=== PATIENT | male | born 1980 | race African-American/Black ===

== ENCOUNTER 2022-06-24 16:19 | Emergency (ER) | payer MEDICAID, OTHER ==
[~2022-06-24] VITALS: Ht 177.8 cm; Wt 74.0 kg
[2022-06-24 16:20] VITALS: BP 161/100
[2022-06-24] MEDS ORDERED: LIDOCAINE HCL 1% 20ML VIAL (Pyxis) INJ INFIL ONE (16:45)
[2022-06-24] MEDS ORDERED: CHLO473M2 PO (16:46)
[2022-06-24] MEDS ORDERED: NAP5EC PO (16:46)
[2022-06-24] MEDS ORDERED: AMOX1TAB16 PO (16:46)
[2022-06-24] MEDS ORDERED: LIDOCAINE HCL 1% 10 MG/ML 10ML VIAL IJ NR (17:00)
== END 2022-06-24 18:33 | disposition home or self-care (01) ==
LOC: ER 16:19
DX: S01.511A Laceration without foreign body of lip, initial encounter (principal); S52.391A Other fracture of shaft of radius, right arm, initial encounter for closed fracture; V49.49XA Driver injured in collision with other motor vehicles in traffic accident, initial encounter; Y93.89 Activity, other specified; Y92.89 Other specified places as the place of occurrence of the external cause; Y99.8 Other external cause status
CPT/HCPCS: 12014; 29105; 73080; 73090; 99284; J3490; Z7610

== ENCOUNTER 2022-07-02 16:05 | Emergency (ER) | payer OTHER ==
[~2022-07-02] VITALS: Ht 175.3 cm; Wt 62.0 kg
[~2022-07-02 16:05] MED LIST: AMOX1TAB16 PO; CHLO473M2 PO; NAP5EC PO
[2022-07-02] MEDS ORDERED: IBUPROFEN 600MG TABLET PO ONE (20:00)
[2022-07-02 20:10] VITALS: BP 130/82
== END 2022-07-02 20:51 | disposition home or self-care (01) ==
LOC: ER 16:05
DX: Z48.02 Encounter for removal of sutures (principal); S52.291A Other fracture of shaft of right ulna, initial encounter for closed fracture; S52.391A Other fracture of shaft of radius, right arm, initial encounter for closed fracture; V49.9XXA Car occupant (driver) (passenger) injured in unspecified traffic accident, initial encounter; Y93.9 Activity, unspecified; Y92.410 Unspecified street and highway as the place of occurrence of the external cause
CPT/HCPCS: 29105; 99283; Z7610